=== PATIENT | female | born 1955 | race Hispanic/Latino ===

== ENCOUNTER → 2022-07-02 | Outpatient (CLI) | payer OTHER ==
[~2022-07-02] VITALS: Ht 152.4 cm; Wt 46.5 kg
[~2022-07-02] MED LIST: CEFAZOLIN SODIUM 2 GM VIAL IVPB PRN; FOSF3PAC4 PO; INFL100I INJ; LACTATED RINGERS 1000ML 1,000 ML IV SCH; LEFL20TA18 PO; LOSA1TAB42 PO; NITR100C PO; OMEP40CA21 PO; PREG75CA75 PO; ROSU10TA28 PO; TERI2.4P SQ; TRAM-355 PO
[2022-07-02 10:26] LABS: HEMATOCRIT 34.7 % (36-48); LYMPHOCYTES % (AUTO) 36.5 % (21.0-51.0); MEAN CORPUSCULAR HEMOGLOBIN 32.3 pg (27.0-33.0); MEAN CORPUSCULAR VOLUME 100.9 fL (79-99); MONOCYTES % (AUTO) 12.9 % (3.0-13.0); NEUTROPHILS % (AUTO) 50.4 % (40.0-77.0); PLATELET COUNT (AUTO) 255 K/uL (130-400); RED BLOOD CELL COUNT(AUTO) 3.44 MIL/uL (4.00-5.50); RED CELL DISTRIBUTION WIDTH 15.7 % (11.0-15.5); WHITE BLOOD COUNT (AUTO) 4.9 K/uL (4.8-10.8)
[2022-07-02 10:39] LABS: INR 0.98 (0.85-1.15); PROTHROMBIN TIME 10.7 SEC (9.6-11.6)
[2022-07-02 10:41] LABS: PARTIAL THROMBOPLASTIN TIME 27.8 SEC (26.3-35.5)
[2022-07-02 10:44] LABS: ALBUMIN 3.6 g/dL (3.5-5.0); BILIRUBIN,DIRECT 0.1 mg/dL (0.0-0.3); CREATININE 0.9 mg/dL (0.5-1.5); POTASSIUM 4.8 mmol/L (3.5-5.1); TOTAL PROTEIN, SERUM 7.4 g/dL (6.0-8.3)
[2022-07-08 12:20] VITALS: BP 137/70
== END | disposition home or self-care (01) ==
LOC: DAH 10:00 → EDSTATUS 07-09 08:00
PROVIDERS: ATTEND Surgery
DX: Z01.818 Encounter for other preprocedural examination (principal); Z20.822 Contact with and (suspected) exposure to COVID-19; K43.6 Other and unspecified ventral hernia with obstruction, without gangrene; Z79.01 Long term (current) use of anticoagulants; Z79.899 Other long term (current) drug therapy
CPT/HCPCS: 71045; 87426; 80076; 80048; 85025; 85610; 85730; 36415; 93005; A6260